=== PATIENT | male | born 1975 | race Caucasian/White ===

== ENCOUNTER 2024-09-09 20:11 | Emergency (ER) | payer OTHER, SELFPAY ==
[2024-09-09 20:11] VITALS: BMI 30.9
[2024-09-09 20:17] VITALS: BP 147/90
[2024-09-09 20:49] LABS: % Basophils 0.1 % (0-2); % Eosinophils 0.1 % (0-6); % Immature Granulocytes 0.4 % (0-0.5); % Lymphocytes 12.2 % (20.5-51.1); % Monocytes 4.7 % (1.7-9.3); % Neutrophils 82.5 % (42.2-75.2); Absolute Immature Granulocytes 0.1 10^3/uL (0-0.05); Absolute Lymphocytes 1.4 10^3/uL (1.2-3.4); Absolute Monocytes 0.5 10^3/uL (0.1-0.6); Absolute Neutrophils 9.2 10^3/uL (1.4-6.5); Hematocrit 40.3 % (39.0-52.0); Hemoglobin 13.3 g/dL (13.0-18.0); Mean Corpuscular Hgb 27.9 pg (27.0-31.0); Mean Corpuscular Volume 84.7 fL (80.0-94.0); Mean Platelet Volume 9.9 fL (7.4-10.4); Nucleated Red Blood Cells % 0 % (-); Platelet Count 210 10^3/uL (130-400); Red Blood Cell Count 4.76 10^6/uL (4.70-6.10); Red Cell Dist. Width 13.6 % (11.5-14.5); Urine Albumin 2+ (Neg - Trace); Urine Bilirubin Negative (Negative); Urine Character Clear (Clear); Urine Color Yellow; Urine Glucose Negative (Negative); Urine Ketone Negative (Negative); Urine Leukocyte Negative (Negative); Urine Nitrite Negative (Negative); Urine Occult Blood 4+ (Negative); Urine Urobilinogen Negative (Neg - 1+); White Blood Cell Count 11.1 10^3/uL (4.8-10.8)
[2024-09-09 20:59] LABS: Urine Bacteria Few (Negative); Urine Red Blood Cell 70-80 /HPF (0-2); Urine Squamous Cell 0-2 /LPF (Few); Urine White Cell 0-2 /HPF (0-5)
[2024-09-09 21:04] LABS: ALT (SGPT) 23 U/L (0-50); AST (SGOT) 26 U/L (17-59); Albumin 4.3 g/dl (3.5-5.0); Alkaline Phosphatase 58 U/L (38-126); Blood Urea Nitrogen 15 mg/dl (9-20); Carbon Dioxide 24 mmol/L (22-30); Chloride 104 mmol/L (98-107); Glucose 121 mg/dl (70-99); Potassium 4.2 mmol/L (3.5-5.1); Sodium 137 mmol/L (135-145); Total Bilirubin 1.1 mg/dl (0.2-1.3); Total Protein 7.2 g/dl (6.3-8.2); eGFR > 60.00
--- NOTE | 2024-09-09 23:18 | ED.GENMED ---
History of Present Illness
General
Chief Complaint: Flank Pain
Time Seen by Provider: 09/09/24 22:59
History of Present Illness
History of Present Illness:
49-year-old male with history of kidney stones and prior history of DVT on Eliquis presenting for right-sided flank and abdominal pain. Patient reports symptoms started earlier today. Pain is in the right flank region with radiation to the
abdomen. Also notes some testicular discomfort, which is typical of kidney stones. Reports kidney stones in the past, all of which have passed on their own. Notes some hesitancy with urination. Denies dysuria. Denies fever. Denies nausea or
vomiting. Denies any surgical history to the abdomen. Denies chest pain or difficulty breathing or additional acute medical complaints
Past History
Past History
ED Past Medical History: None and Other (Kidney stone, 01/2012)
ED Past Surgical History: None
Social History
Tobacco: Non-smoker
Alcohol: Occasional
Personal:
Living: with family
Employment: Employed
Family History
Family History: Other (No significant)
Phy Exam
Physical Exam
Physical Exam:
General: Well-appearing, no clinical signs of dehydration, nontoxic and in no acute distress
HEENT: protecting airway
Neck: appears supple
CV: Normal heart rate, regular rhythm
Resp: No accessory muscle use, no increased work of breathing, lungs clear to auscultation bilaterally
Abd: Soft and non-distended, no tenderness to palpation. Mild right CVA tenderness
Extremities: No deformities, no swelling
Neuro: alert, no focal neurologic deficit
: deferred
Rectal: deferred
Psych: Normal affect
Skin: Intact
Course
Orders/Labs/Results
Orders:
Orders
09/09/24 20:40
Complete Blood Count/With Diff Urgent
Comprehensive Metabolic Panel Urgent
Urinalysis Reflex To Culture Urgent
Date Specimen was Collected: 09/09/24
Time Specimen was Collected: 20:37
Urine Microscopic Reflex Cult Urgent
09/09/24 23:17
HYDROmorphone [Dilaudid] 1 mg IV NOW STA
09/09/24 23:18
CT Abd/pel Without Iv Or Oral Urgent
Comment:
Reason For Exam: right sided pain, suspect stone
09/10/24 00:54
HYDROmorphone [Dilaudid] 1 mg IV NOW STA
Tamsulosin [Flomax] 0.4 mg PO NOW STA
Abnormal Lab Results
09/09/24
20:40
WBC 11.1 H 10^3/uL
(4.8-10.8)
Abs Immat Gran (auto) 0.1 H 10^3/uL
(0-0.05)
Absolute Neuts (auto) 9.2 H 10^3/uL
(1.4-6.5)
Neutrophils % 82.5 H %
(42.2-75.2)
Lymphocytes % 12.2 L %
(20.5-51.1)
Glucose 121 H mg/dl
(70-99)
Ur Occult Blood Reflex 4+ A
(Negative)
Urine RBC 70-80 A /HPF
(0-2)
Urine Bacteria (Reflex) Few A
(Negative)
Urine Albumin (Reflex) 2+ A
(Neg - Trace)
09/09/24 20:40
09/09/24 20:40
Vital Signs
Initial and Last Documented VS:
Initial Vital Signs
Temp Pulse Resp BP Pulse Ox
98.4 F 59 18 147/90 98
09/09/24 20:17 09/09/24 20:17 09/09/24 20:17 09/09/24 20:17 09/09/24 20:17
Last Documented Vital Signs
Temp Pulse Resp BP Pulse Ox
98.4 F 59 18 139/86 96
09/09/24 20:17 09/09/24 20:17 09/09/24 20:17 09/10/24 00:16 09/10/24 00:17
MDM/Problems Addressed
MDM/Problems Addressed:
49-year-old male prior history of kidney stones presenting for right flank and abdominal pain. Vital signs are normal
On exam patient is resting comfortably, no acute distress, nontoxic. Benign cardiac and pulmonary exam. On abdominal exam, mild right CVA tenderness, abdomen soft and nondistended. Symptom presentation and physical exam appears consistent with
kidney stone, particularly given patient's history. Urine obtained, does show signs of hematuria, no significant signs of infection. Labs obtained prior to my assessment, very minimal leukocytosis. Overall low sufficient for infected stone. Will
obtain CT imaging of the abdomen. Patient notes Dilaudid usually helps for his pain in the situations. Will administer.
00:50 - CT shows a 3 mm stone. No additional acute pathology. Patient reports that his pain is much improved. Feel stable for discharge with continued outpatient supportive therapy. Will prescribe Percocet for pain. Advised outpatient urology
follow-up. Will also prescribe Flomax. Return precautions discussed and patient verbalized understanding
*Critical Care Note
Total Time (30-74mins, 75-104mins- exclusive of procedures): Not Applicable
ED Attending Note
-
Portions of this chart may have been created with voice recognition software.� Occasional wrong word or��sound alike� substitutions may have occurred due to the inherent limitations of voice recognition software.
Discharge Plan
Departure
Patient Disposition: Home (Routine Discharge)
Date of Disposition: 09/10/24
Time of Disposition: 00:56
Patient with high blood pressure during this ER visit?: No
Condition: Good
Discharge Problem:
Right kidney stone
Instructions: Kidney Stones (DC), How to Strain Your Urine, Narcotic Pain Medication
Prescriptions:
New
tamsulosin [Flomax] 0.4 mg capsule
0.4 mg PO DAILY 7 Days Qty: 7 0RF
oxycodone-acetaminophen [Percocet] 5-325 mg tablet
1 tab PO Q8H PRN (Reason: Pain) Qty: 10 0RF
No Action
multivitamin with folic acid [Tab-A-Zahira] 1 TABLET tablet
1 tab PO DAILY
apixaban [Eliquis] 5 MG tablet
5 mg PO BID Qty: 68 0RF
Rx Instructions:
10mg BID for 13 more doses then 5mg BID thereafter
Referrals:
Aicha Riddle MD [Family Provider] -
Burt Anderson Jr., MD [Active] -
Activity Restrictions/Additional Instructions:
You were seen in the emergency department for right-sided back and abdominal pain
You were found to have a 3 mm kidney stone. Please follow-up with the urologist. You were prescribed Percocet for pain
Please follow-up closely with your primary care physician.
Return to the emergency department for any worsening of your symptoms, or any development of chest pain, difficulty breathing, abdominal pain with persistent vomiting and inability to tolerate food or liquid by mouth (concern for dehydration),
weakness, headache or confusion, fever greater than 100.4, or any additional symptoms that are concerning to you.
Thank you for choosing [facility].
Interventions
Interventions:
*Risk Screen - Suicide Last Done: 09/09/24 20:17
*General Assessment Last Done: 09/09/24 20:17
*Neglect/Abuse Screening Last Done: 09/09/24 20:17
*ED COVID-19 Vaccine History Last Done: 09/09/24 22:57
YD-Zaeszx-Eiyfzoager Assessment Last Done: 09/10/24 00:22
ED-Male Genitourinary Assessment Last Done: 09/10/24 00:22
Discharge Date and Time
Print Language: RUSSIAN
[2024-09-09] MEDS: DILAUDID 1 MG IV (23:28)
[2024-09-10 00:16] VITALS: BP 139/86
[2024-09-10 01:00] VITALS: BP 138/85
[2024-09-10] MEDS: DILAUDID 1 MG IV (01:04)
[2024-09-10] MEDS: FLOMAX 0.4 MG PO (01:05)
== END 2024-09-10 01:23 | disposition home or self-care (01) ==
LOC: EMR 20:11
PROVIDERS: Student in an Organized Health Care Education/Training Program; EMERGENCY PHYSICIAN Student in an Organized Health Care Education/Training Program; FAMILY PHYSICIAN Internal Medicine
DX: N20.0 Calculus of kidney (principal); R39.11 Hesitancy of micturition; R31.9 Hematuria, unspecified; Z87.442 Personal history of urinary calculi; Z86.718 Personal history of other venous thrombosis and embolism; Z79.01 Long term (current) use of anticoagulants
CPT/HCPCS: 99284; 96374; 96376; 74176; 80053; 81003; 81015; 85025